=== PATIENT | male | born 1965 | race Caucasian/White ===

== ENCOUNTER 2016-09-04 15:15 | Outpatient (CLI) | payer MEDICAID ==
[2016-09-04 19:13] LABS: BASOPHILS # (AUTO) 0.1 10^3/uL (0.0-0.1); BASOPHILS % (AUTO) 1.4 %; EOSINOPHILS # (AUTO) 0.4 10^3/uL (0.0-0.7); EOSINOPHILS % (AUTO) 6.4 %; HCT - HEMATOCRIT 43.8 % (42.0-52.0); HGB - HEMOGLOBIN 14.7 g/dL (14.0-18.0); LYMPHOCYTES # (AUTO) 2.1 10^3/uL (1.5-3.5); LYMPHOCYTES % (AUTO) 37.1 %; MEAN CORPUSCULAR HEMOGLOBIN 29.8 pg (27.0-31.0); MEAN CORPUSCULAR HGB CONC 33.5 g/dL (32.0-36.0); MEAN CORPUSCULAR VOLUME 89.1 fL (80.0-94.0); MEAN PLATELET VOLUME 9.1 fL (7.4-11.4); MONOCYTES # (AUTO) 0.3 10^3/uL (0.0-1.0); MONOCYTES % (AUTO) 5.2 %; NEUTROPHILS # (AUTO) 2.8 10^3/uL (1.5-6.6); NEUTROPHILS % (AUTO) 49.9 %; RED BLOOD COUNT 4.92 10^6/uL (4.70-6.10); RED CELL DISTRIBUTION WIDTH 13.1 % (12.0-15.0); UNCORRECTED WHITE BLOOD COUNT 5.6 x10^3/uL; WHITE BLOOD COUNT 5.6 x10^3/uL (4.8-10.8)
[2016-09-04 19:22] LABS: HEMOGLOBIN A1C 0.7 g/dL
[2016-09-04 20:09] LABS: ALBUMIN/GLOBULIN RATIO 1.6 (1.0-2.2); BILIRUBIN,TOTAL 1.2 mg/dL (0.2-1.0); BUN - BLOOD UREA NITROGEN 10 mg/dL (6-20); CALCIUM 9.3 mg/dL (8.5-10.3); CARBON DIOXIDE - CO2 24 mmol/L (21-32); CHLORIDE 107 mmol/L (101-111); CHOL/HDL RATIO 3.2 (<5.0); CHOLESTEROL 138 mg/dL; CREATININE 0.7 mg/dL (0.6-1.2); GFR - MDRD 120 (>89); GLUCOSE 125 mg/dL (70-100); HDL CHOLESTEROL 43 mg/dL; LDL/HDL RATIO 1.7 (<3.6); POTASSIUM 3.7 mmol/L (3.5-5.0); SODIUM 140 mmol/L (135-145); TOTAL PROTEIN 7.2 g/dL (6.7-8.2); TRIGLYCERIDES 109 mg/dL; VLDL CHOLESTEROL 22 mg/dL
== END 2016-09-04 15:16 | disposition home or self-care (01) ==
LOC: LAB.WCP 15:15
PROVIDERS: ATTEND Physician Assistant Medical
DX: Z00.00 Encounter for general adult medical examination without abnormal findings (principal)
CPT/HCPCS: 36415; 80053; 80061; 83036; 84443; 85025

== ENCOUNTER 2017-12-09 08:00 | Outpatient (CLI) | payer MEDICAID ==
[2017-12-09 18:53] LABS: BASOPHILS # (AUTO) 0.1 10^3/uL (0.0-0.1); BASOPHILS % (AUTO) 1.3 %; EOSINOPHILS # (AUTO) 0.4 10^3/uL (0.0-0.7); EOSINOPHILS % (AUTO) 5.9 %; HGB - HEMOGLOBIN 14.6 g/dL (14.0-18.0); LYMPHOCYTES # (AUTO) 2.5 10^3/uL (1.5-3.5); LYMPHOCYTES % (AUTO) 40.5 %; MEAN CORPUSCULAR HEMOGLOBIN 30.2 pg (27.0-31.0); MEAN CORPUSCULAR HGB CONC 33.8 g/dL (32.0-36.0); MEAN CORPUSCULAR VOLUME 89.2 fL (80.0-94.0); MEAN PLATELET VOLUME 8.9 fL (7.4-11.4); MONOCYTES # (AUTO) 0.3 10^3/uL (0.0-1.0); MONOCYTES % (AUTO) 5.6 %; NEUTROPHILS # (AUTO) 2.8 10^3/uL (1.5-6.6); NEUTROPHILS % (AUTO) 46.7 %; PLT - PLATELET COUNT 208 10^3/uL (130-450); RED BLOOD COUNT 4.83 10^6/uL (4.70-6.10); RED CELL DISTRIBUTION WIDTH 12.8 % (12.0-15.0); WHITE BLOOD COUNT 6.1 x10^3/uL (4.8-10.8)
[2017-12-09 19:12] LABS: ALBUMIN 4.3 g/dL (3.2-5.5); ALBUMIN/GLOBULIN RATIO 1.4 (1.0-2.2); ALKALINE PHOSPHATASE 52 IU/L (42-121); ALT ALANINE AMINOTRANSFERASE 17 IU/L (10-60); AST ASPARTATE AMINOTRANSFERASE 20 IU/L (10-42); BILIRUBIN,TOTAL 0.9 mg/dL (0.2-1.0); BUN - BLOOD UREA NITROGEN 10 mg/dL (6-20); CALCIUM 9.1 mg/dL (8.5-10.3); CARBON DIOXIDE - CO2 23 mmol/L (21-32); CHLORIDE 107 mmol/L (101-111); CHOL/HDL RATIO 3.5 (<5.0); CHOLESTEROL 156 mg/dL; CREATININE 0.7 mg/dL (0.6-1.2); GFR - MDRD 119 (>89); GLUCOSE 119 mg/dL (70-100); HDL CHOLESTEROL 44 mg/dL; LDL CHOLESTEROL,CALCULATED 89 mg/dL; SODIUM 140 mmol/L (135-145); TOTAL PROTEIN 7.4 g/dL (6.7-8.2); VLDL CHOLESTEROL 23 mg/dL
[2017-12-09 19:55] LABS: HB2 TOTAL 14.9 g/dL; HEMOGLOBIN A1C 0.7 g/dL; HEMOGLOBIN A1C % 6.4 % (4.6-6.2)
== END 2017-12-09 08:01 | disposition home or self-care (01) ==
LOC: LAB.WCP 08:00
PROVIDERS: ATTEND Physician Assistant Medical
DX: Z00.00 Encounter for general adult medical examination without abnormal findings (principal); E11.9 Type 2 diabetes mellitus without complications; E78.2 Mixed hyperlipidemia
CPT/HCPCS: 36415; 80053; 80061; 81599; 82043; 83036; 83721; 84153; 84443; 85025

== ENCOUNTER 2018-05-05 06:12 | Day surgery (SDC) | payer MEDICAID ==
[~2018-05-05 06:12] MED LIST: MIDAZOLAM 2 MG/2 ML VIAL IVP ONE; fentaNYL 250 MCG/5 ML VIAL IVP ONE
[2018-05-05] MEDS ORDERED: LACTATED RINGERS 1,000 ML IV ONE ×2 (06:54→08:09)
[2018-05-05] MEDS ORDERED: LIDO GARGLE 30 ML BOTTLE ONE (07:17)
[2018-05-05] MEDS ORDERED: LIDO GARGLE 30 ML BOTTLE TOP ONE (07:30)
[2018-05-05 09:40] VITALS: BP 134/77
== END 2018-05-05 06:13 | disposition home or self-care (01) ==
LOC: SDS 06:12
PROVIDERS: ATTEND Internal Medicine Gastroenterology
PROC: 0DB38ZX Excision of Lower Esophagus, Via Natural or Artificial Opening Endoscopic, Diagnostic (ICD-10-PCS; 2018-05-05)
PROC: 0DB18ZX Excision of Upper Esophagus, Via Natural or Artificial Opening Endoscopic, Diagnostic (ICD-10-PCS; 2018-05-05)
PROC: 0D748ZZ Dilation of Esophagogastric Junction, Via Natural or Artificial Opening Endoscopic (ICD-10-PCS; 2018-05-05)
PROC: 0DBM8ZZ Excision of Descending Colon, Via Natural or Artificial Opening Endoscopic (ICD-10-PCS; principal; 2018-05-05 07:30)
PROC: 0DBN8ZZ Excision of Sigmoid Colon, Via Natural or Artificial Opening Endoscopic (ICD-10-PCS; 2018-05-05 07:30)
DX: Z12.11 Encounter for screening for malignant neoplasm of colon (principal); R13.10 Dysphagia, unspecified; D12.4 Benign neoplasm of descending colon; D12.5 Benign neoplasm of sigmoid colon; K22.2 Esophageal obstruction; E11.9 Type 2 diabetes mellitus without complications; Z79.84 Long term (current) use of oral hypoglycemic drugs; E66.9 Obesity, unspecified; Z68.31 Body mass index [BMI] 31.0-31.9, adult; E78.2 Mixed hyperlipidemia
CPT/HCPCS: 43239; 43249; 45380; 45385; A9270; J7120

== ENCOUNTER 2018-08-15 08:00 | Outpatient (CLI) | payer MEDICAID ==
[2018-08-15 19:20] LABS: ALBUMIN 4.3 g/dL (3.2-5.5); ALBUMIN/GLOBULIN RATIO 1.3 (1.0-2.2); ALKALINE PHOSPHATASE 44 IU/L (42-121); ALT ALANINE AMINOTRANSFERASE 17 IU/L (10-60); AST ASPARTATE AMINOTRANSFERASE 20 IU/L (10-42); BILIRUBIN,TOTAL 1.4 mg/dL (0.2-1.0); BUN - BLOOD UREA NITROGEN 13 mg/dL (6-20); CALCIUM 9.2 mg/dL (8.5-10.3); CARBON DIOXIDE - CO2 23 mmol/L (21-32); CHLORIDE 106 mmol/L (101-111); CHOL/HDL RATIO 3.9 (<5.0); CHOLESTEROL 168 mg/dL; CREATININE 0.7 mg/dL (0.6-1.2); GFR - MDRD 119 (>89); GLUCOSE 134 mg/dL (70-100); HDL CHOLESTEROL 43 mg/dL; LDL CHOLESTEROL,CALCULATED 100 mg/dL; LDL/HDL RATIO 2.3 (<3.6); SODIUM 140 mmol/L (135-145); TOTAL PROTEIN 7.5 g/dL (6.7-8.2); VLDL CHOLESTEROL 25 mg/dL
[2018-08-15 19:32] LABS: HB2 TOTAL 14.7 g/dL; HEMOGLOBIN A1C 0.68 g/dL; HEMOGLOBIN A1C % 6.4 % (4.6-6.2)
== END 2018-08-15 23:59 | disposition home or self-care (01) ==
LOC: LAB.WCP 08:00
PROVIDERS: ATTEND Physician Assistant Medical
DX: E11.9 Type 2 diabetes mellitus without complications (principal)
CPT/HCPCS: 36415; 80053; 80061; 83036; 83721

== ENCOUNTER 2019-02-13 08:00 | Outpatient (CLI) | payer MEDICAID ==
[2019-02-13 18:41] LABS: HEMOGLOBIN A1C 0.79 g/dL
[2019-02-13 18:51] LABS: ALBUMIN 4.4 g/dL (3.2-5.5); ALBUMIN/GLOBULIN RATIO 1.4 (1.0-2.2); ALKALINE PHOSPHATASE 42 IU/L (42-121); ALT ALANINE AMINOTRANSFERASE 19 IU/L (10-60); AST ASPARTATE AMINOTRANSFERASE 22 IU/L (10-42); BILIRUBIN,TOTAL 1.4 mg/dL (0.2-1.0); BUN - BLOOD UREA NITROGEN 11 mg/dL (6-20); CALCIUM 9.2 mg/dL (8.5-10.3); CARBON DIOXIDE - CO2 23 mmol/L (21-32); CHLORIDE 108 mmol/L (101-111); CHOL/HDL RATIO 3.4 (<5.0); CHOLESTEROL 150 mg/dL; CREATININE 0.6 mg/dL (0.6-1.2); GFR - MDRD 142 (>89); GLUCOSE 142 mg/dL (70-100); HDL CHOLESTEROL 44 mg/dL; LDL CHOLESTEROL,CALCULATED 85 mg/dL; LDL/HDL RATIO 1.9 (<3.6); SODIUM 139 mmol/L (135-145); TOTAL PROTEIN 7.5 g/dL (6.7-8.2); VLDL CHOLESTEROL 21 mg/dL
== END 2019-02-13 23:59 | disposition home or self-care (01) ==
LOC: LAB.WCP 08:00
PROVIDERS: ATTEND Physician Assistant Medical
DX: E11.9 Type 2 diabetes mellitus without complications (principal)
CPT/HCPCS: 36415; 80053; 80061; 83036; 83721

== ENCOUNTER 2019-09-04 15:08 | Outpatient (CLI) | payer MEDICAID ==
[2019-09-04 18:01] LABS: ALBUMIN 4.5 g/dL (3.2-5.5); ALBUMIN/GLOBULIN RATIO 1.7 (1.0-2.2); BILIRUBIN,TOTAL 1.7 mg/dL (0.2-1.0); CALCIUM 9.1 mg/dL (8.5-10.3); CREATININE 0.8 mg/dL (0.6-1.2); TOTAL PROTEIN 7.1 g/dL (6.7-8.2)
[2019-09-04 18:10] LABS: CREATININE,URINE 259.4 mg/dL; MICROALBUM/CREATININE RATIO,UR 3.5 ug/mg (<30.0); MICROALBUMIN,URINE 0.9 mg/dL (0-300.0)
[2019-09-04 18:14] LABS: HB2 TOTAL 14.6 g/dL; HEMOGLOBIN A1C 0.78 g/dL
== END 2019-09-04 23:59 | disposition home or self-care (01) ==
LOC: LAB.WCP 15:08
PROVIDERS: ATTEND Physician Assistant Medical
DX: E11.9 Type 2 diabetes mellitus without complications (principal)
CPT/HCPCS: 36415; 80053; 82043; 82570; 83036; 84443

== ENCOUNTER 2020-06-14 14:58 | Outpatient (CLI) | payer MEDICAID ==
[2020-06-14 18:37] LABS: ALBUMIN 4.5 g/dL (3.2-5.5); ALBUMIN/GLOBULIN RATIO 1.5 (1.0-2.2); ALKALINE PHOSPHATASE 46 IU/L (42-121); ALT ALANINE AMINOTRANSFERASE 23 IU/L (10-60); AST ASPARTATE AMINOTRANSFERASE 20 IU/L (10-42); BILIRUBIN,TOTAL 1.5 mg/dL (0.2-1.0); BUN - BLOOD UREA NITROGEN 12 mg/dL (6-20); CALCIUM 9.4 mg/dL (8.5-10.3); CARBON DIOXIDE - CO2 24 mmol/L (21-32); CHLORIDE 107 mmol/L (101-111); CHOLESTEROL 170 mg/dL; CREATININE 0.7 mg/dL (0.6-1.2); GFR - MDRD 118 (>89); GLUCOSE 166 mg/dL (70-100); HDL CHOLESTEROL 43 mg/dL; LDL CHOLESTEROL,CALCULATED 93 mg/dL; LDL/HDL RATIO 2.2 (<3.6); POTASSIUM 3.9 mmol/L (3.5-5.0); SODIUM 142 mmol/L (135-145); TOTAL PROTEIN 7.5 g/dL (6.7-8.2); TRIGLYCERIDES 170 mg/dL; VLDL CHOLESTEROL 34 mg/dL
[2020-06-14 20:23] LABS: ESTIMATED AVERAGE GLUCOSE 171 mg/dL (70-100); HEMOGLOBIN A1c% 7.6 % (4.27-6.07)
== END 2020-06-14 23:59 | disposition home or self-care (01) ==
LOC: LAB.WCP 14:58
PROVIDERS: ATTEND Physician Assistant Medical
DX: E11.9 Type 2 diabetes mellitus without complications (principal); Z12.5 Encounter for screening for malignant neoplasm of prostate
CPT/HCPCS: 36415; 80053; 80061; 83036; 83721; 84153

== ENCOUNTER 2022-12-03 17:55 | Emergency (ER) | payer MEDICAID ==
[2022-12-03 18:38] LABS: BASOPHILS # (AUTO) 0.1 10^3/uL (0.0-0.1); BASOPHILS % (AUTO) 1.1 %; EOSINOPHILS # (AUTO) 0.4 10^3/uL (0.0-0.7); EOSINOPHILS % (AUTO) 6.7 %; HCT - HEMATOCRIT 43.7 % (42.0-52.0); HGB - HEMOGLOBIN 14.6 g/dL (14.0-18.0); LYMPHOCYTES # (AUTO) 1.7 10^3/uL (1.5-3.5); LYMPHOCYTES % (AUTO) 26.3 %; MEAN CORPUSCULAR HEMOGLOBIN 29.1 pg (27.0-31.0); MEAN CORPUSCULAR HGB CONC 33.4 g/dL (32.0-36.0); MEAN CORPUSCULAR VOLUME 87.1 fL (80.0-94.0); MEAN PLATELET VOLUME 10.3 fL (7.4-11.4); MONOCYTES # (AUTO) 0.4 10^3/uL (0.0-1.0); MONOCYTES % (AUTO) 5.8 %; NEUTROPHILS # (AUTO) 3.8 10^3/uL (1.5-6.6); NEUTROPHILS % (AUTO) 59.9 %; PLT - PLATELET COUNT 192 10^3/uL (130-450); RED BLOOD COUNT 5.02 10^6/uL (4.70-6.10); WHITE BLOOD COUNT 6.4 x10^3/uL (4.8-10.8)
[2022-12-03 18:58] LABS: TROPONIN I HIGH SENSITIVITY 3.7 ng/L (2.3-19.7)
[2022-12-03 19:10] LABS: ALBUMIN 4.5 g/dL (3.2-5.5)
[2022-12-03 19:22] LABS: ALBUMIN/GLOBULIN RATIO 1.7 (1.0-2.2); CALCIUM 9.4 mg/dL (8.5-10.3); CREATININE 0.8 mg/dL (0.6-1.3); POTASSIUM 3.7 mmol/L (3.5-4.5); TOTAL PROTEIN 7.1 g/dL (6.4-8.9)
--- NOTE | 2022-12-03 19:39 | ED Physician Documentation ---
History of Present Illness - Stated complaint Stated Complaint: L SIDE NUMBNESS - Chief complaint Chief Complaint: Neuro - History obtained from History obtained from: Patient - History of Present Illness Timing: Today Pain level max: 0 Pain level now: 0 - Additonal information Additional information: 57-year-old male presents to the emergency department complaining of several months of decreased hearing in the left ear along with feelings of dizziness and Feeling off balance for several months. He states that over the past 5 to 6 days he has had numbness on the left side of the tongue and had tingling in the left arm and feels like he does not have fine motor control over the left hand. No headache. No trauma. No fevers. No chills. No recent illnesses. No medications. Nothing makes it better or worse. Has not had similar symptoms previously. No neck or back pain. He states he has seen his PCP but has not had any imaging performed. Review of Systems Constitutional: denies: Fever, Chills Throat: denies: Sore throat Cardiac: denies: Chest pain / pressure Respiratory: denies: Dyspnea, Cough GI: denies: Vomiting, Diarrhea Skin: denies: Rash Musculoskeletal: denies: Neck pain, Back pain Neurologic: denies: Headache PD PAST MEDICAL HISTORY - Past Medical History Cardiovascular: None, High cholesterol Respiratory: None Endocrine/Autoimmune: Type 2 diabetes GI: None : None HEENT: Chronic vision loss Psych: None Musculoskeletal: None Derm: None - Past Surgical History Past Surgical History: No Ortho: Other - Present Medications Home Medications: Ambulatory Orders Medication Instructions Recorded Confirmed Empagliflozin [Jardiance] 25 mg PO DAILY 12/03/22 12/03/22 Lisinopril [Zestril] 10 mg PO DAILY 12/03/22 12/03/22 Rosuvastatin Calcium [Crestor] 40 mg PO DAILY 12/03/22 12/03/22 - Allergies Allergies/Adverse Reactions: Allergies Allergy/AdvReac Type Severity Reaction Status Date / Time No Known Drug Allergies Allergy Verified 12/03/22 18:08 - Social History Does the pt smoke?: Yes Smoking Status: Current every day smoker Does the pt drink ETOH?: No Does the pt have substance abuse?: Yes PD ED PE NORMAL - Vitals Vital signs reviewed: Yes - General General: Alert and oriented X 3, No acute distress - HEENT HEENT: Atraumatic, PERRL, EOMI, Ears normal, Moist mucous membranes, Pharynx benign, Other (No nystagmus.) - Neck Neck: Supple, no meningeal sign, No bony TTP, No JVD, No bruit - Cardiac Cardiac: RRR, Strong equal pulses - Respiratory Respiratory: No respiratory distress, Clear bilaterally - Abdomen Abdomen: Soft, Non tender, Non distended - Back Back: No CVA TTP, No spinal TTP - Derm Derm: Warm and dry - Extremities Extremities: Normal ROM s pain - Neuro Neuro: Alert and oriented X 3, conveyor monitor 2-12 intact, No motor deficit, No sensory deficit, Normal speech, Other (Patient does have difficulty with [id number] with the left hand. Also has difficulty with the left hand with dysdiadochokinesis) Eye Opening: Spontaneous Motor: Obeys Commands Verbal: Oriented GCS Score: 15 - Psych Psych: Normal mood, Normal affect Results - Vitals Vitals: Vital Signs - 24 hr 12/03/22 12/03/22 18:02 22:00 Temperature 36.9 C 37 C Heart Rate 72 82 Respiratory 20 20 Rate Blood Pressure 182/101 H 125/86 H O2 Saturation 96 100 Oxygen O2 Source Room air - EKG (time done) 1817 EKG releavant findings:: EKG personally interpreted by author of this note. Relevant findings are: Rate: Rate (enter#) (65) Rhythm: NSR, Other (PVC - trigeminy) [place]: Normal Intervals: Normal [place] QRS: Normal Ischemia: Normal ST segments - Labs Labs: Laboratory Tests 12/03/22 12/03/22 18:33 18:33 WBC 6.4 RBC 5.02 Hgb 14.6 Hct 43.7 MCV 87.1 MCH 29.1 MCHC 33.4 RDW 12.0 Plt Count 192 MPV 10.3 Neut # (Auto) 3.8 Lymph # (Auto) 1.7 [place] # (Auto) 0.4 Eos # (Auto) 0.4 Baso # (Auto) 0.1 Absolute Nucleated RBC 0.00 Nucleated RBC % 0.0 Sodium 137 Potassium 3.7 Chloride 106 Carbon Dioxide 20 L Anion Gap 11.0 BUN 14 Creatinine 0.8 Estimated GFR (MDRD) 100 Glucose 193 H Calcium 9.4 Total Bilirubin 1.0 AST 20 ALT 21 Alkaline Phosphatase 56 Troponin I High Sens 3.7 Total Protein 7.1 Albumin 4.5 Globulin 2.6 Albumin/Globulin Ratio 1.7 Lipase 43 - Rads (name of study) CT angio head Relevant Findings:: Final report received, See rad report CT head Relevant Findings:: Final report received, See rad report PD Medical Decision Making - ED course Complexity details: reviewed results, re-evaluated patient, considered differential, d/w patient, d/w family ED course: 57-year-old male with paresthesia he left arm and numbness to the left tongue. Ongoing for 5 to 6 days. Also has had decreased hearing in the left ear for several months and feeling off balance for several months. No acute findings on angiogram of the head and neck. No acute findings on head CT. MRI is not available tonight. Patient does not want to stay in the emergency department tonight. There are no beds available for observation. He will return in the morning for MRI. Patient counseled regarding signs and symptoms for which I believe and urgent re-evaluation would be necessary. Patient with good understanding of and agreement to plan and is comfortable going home at this time This document was made in part using voice recognition software. While efforts are made to proofread this document, sound alike and grammatical errors may occur. Patient was given aspirin tonight. Departure - Departure Disposition: 01 Home, Self Care Clinical Impression: Numbness of tongue, Arm paresthesia, left Condition: Good Instructions: ED Paraesthesias Follow-Up: Cindy Kline PA-C [Primary Care Provider] - Comments: The cause of your symptoms is unclear tonight. The angiogram of your head and neck do not show any acute abnormalities. Your head CT does not show any acute abnormalities. Your blood work does not show any acute abnormalities. As we discussed it is important that you have an MRI urgently, we did discuss staying in the ER tonight so this could be done in the morning, but you have elected to go home and come back early in the morning for MRI. I would recommend checking back into the emergency department around 8 AM. Please return at any time should you worsen. Forms: PCP List Discharge Date/Time: 12/03/22 22:00
--- NOTE | 2022-12-03 21:09 | CT Report ---
PROCEDURE: HEAD WO INDICATIONS: L arm weak, L tongue numb x 5 days TECHNIQUE: Noncontrast 4.5 mm thick angled axial sections acquired from the foramen magnum to the vertex. For r adiation dose reduction, the following was used: automated exposure control, adjustment of mA and/or kV according to patient size. COMPARISON: None. FINDINGS: Image quality: Good CSF spaces: Basal cisterns are patent. Lateral ventricles are symmetric. Volume: Vascular calcifications. Periventricular white matter disease is commonly seen with chronic m icroangiopathy. Volume loss is present. These findings are mild. Brain: No intracranial hemorrhage. Peters-white differentiation is grossly maintained. Craniofacial structures: No displaced fracture. Sinuses are clear. Orbits are intact. IMPRESSION: No acute intracranial abnormality. Consider MRI if there is high concern for infarct. Reviewed by: Deangelo Eric MD on 12/03/2022 9:08 PM PDT Approved by: Deangelo Eric MD on 12/03/2022 9:08 PM PDT Station ID: [id number]
--- NOTE | 2022-12-03 21:16 | CT Report ---
PROCEDURE: CT Angio Head/Neck INDICATIONS: L sided tongue numb, arm weak x several days. TECHNIQUE: Axial CT images were obtained of the head and neck in the arteriographic phase. Multiplana r reformats were obtained. IV contrast was used. Contrast: IV contrast. COMPARISON: Same-day head CT FINDINGS: Image quality: Good Head angiography Anterior circulation: ICAs: Moderate cavernous calcifications. ACAs: normal and symmetric MCAs: normal and symmetric AComm: no aneurysm Posterior circulation: Dominance: Slightly left dominant Vertebral arteries: Mild calcifications Basilar artery: Moderate irregularity in the proximal segment with narrowing PComms: no aneurysm kindergarten teacher assistant: Moderate to severe intracranial irregularity. Neck angiography Aortic arch and subclavian arteries: Atherosclerotic calcifications without significant narrowing CCAs: no stenosis, occlusion, or aneurysm. ICA origins (by NASCET criteria): Mild calcifications without significant narrowing ICAs: no stenosis, occlusion or aneurysm. ECAs: origins are patent. Vertebral arteries: Mild calcification of the left origin. Soft tissues: no significant mass, aneurysm, or lymphadenopathy Tonsillar calcifications may be due to prior inflammation. No drainable fluid collection. Lung apices: no pneumothorax Bones: Degenerative changes, no acute or suspicious osseous finding. IMPRESSION: No large vessel occlusion. Intracranial areas of multifocal narrowing, particularly involving the pos terior circulation (basilar artery and kindergarten teacher assistant), likely intracranial atherosclerotic disease. Consider M RI to further evaluate for infarct. Other findings as above. Reviewed by: Deangelo Eric MD on 12/03/2022 9:15 PM PDT Approved by: Deangelo Eric MD on 12/03/2022 9:15 PM PDT Station ID: [id number]
[2022-12-03] MEDS ORDERED: ASPIRIN CHEW 81 MG TABLET PO STA (21:26)
[2022-12-03 22:02] VITALS: BP 125/86; O2SAT 100
[2022-12-04] MEDS ORDERED: iohexoL-300 100 ML VIAL IVP ONE (04:49)
== END 2022-12-03 22:00 | disposition home or self-care (01) ==
LOC: ED 17:55
DX: R20.2 Paresthesia of skin (principal); K13.29 Other disturbances of oral epithelium, including tongue; F17.200 Nicotine dependence, unspecified, uncomplicated
CPT/HCPCS: 36415; 70450; 70496; 70498; 80053; 83690; 84484; 85025; 93005; 99283; 99284; A9270; Q9967

== ENCOUNTER 2022-12-04 07:44 | Emergency (ER) | payer MEDICAID ==
[2022-12-04 08:35] VITALS: O2SAT 98
--- NOTE | 2022-12-04 11:46 | MRI Report ---
PROCEDURE: BRAIN WO INDICATIONS: left arm numbness, incoordinate; dizziness TECHNIQUE: Noncontrast axial diffusion, T1, and sagittal FLAIR sequences are submitted for interpretation. COMPARISON: None. FINDINGS: Image quality: Excellent. CSF Spaces: Basal cisterns are patent. No extra-axial fluid collections. Ventricles are normal in size and shape. Brain: No intracranial masses or hemorrhage. Peters/white matter interface is normal. Diffusion-weigh tana imaging demonstrates a 12 mm diameter focus of elevated signal intensity within the left cerebell ar peduncle, which demonstrates moderate FLAIR signal elevation. No chronic ischemic insults. Normal intravascular flow voids are present. Skull and face: Calvarium has normal marrow signal. Orbits appear normal. Sinuses: Sinuses and mastoids are clear. IMPRESSION: 1. Subacute left cerebellar peduncle infarct. Reviewed by: Milagros Harrington MD on 12/04/2022 11:45 AM PDT Approved by: Milagros Harrington MD on 12/04/2022 11:45 AM PDT Station ID: [id number]
[2022-12-04] MEDS ORDERED: CLOPIDOGREL 75 MG TABLET PO STA (12:53)
--- NOTE | 2022-12-04 12:58 | ED Physician Documentation ---
PD HPI FOCAL NEURO - Stated complaint Stated Complaint: LT SIDE NUMBNESS - Chief complaint Chief Complaint: Neuro - History obtained from History obtained from: Patient - History of Present Illness Timing - onset: How many weeks ago (1) Timing - duration: Weeks (about 1 week of feeling poor fine motor dexterity left hand, some limping with left leg. Dizziness and balance problems. Seen yesterday with CT, CT-A, labs done. No acute process. Told to return for MRI today and sooner if worse. No new symptoms; prior ones unchanged.) Timing - details: Abrupt onset, Still present, Waxing and waning Weakness: Hand, Foot, Left. No: Face Numbness: No: Face, Hand, Foot Associated symptoms: No: Headache, Nausea / vomiting, Head injury Baseline status: positive: A&OX3, ambulatory, indep Similar symptoms before: Has not had sx before Recently seen: Emergency Dept (seen yesterday and was to be OBS versus return for MRI and pt opted for d/c and return today.) Review of Systems Constitutional: denies: Fever, Chills Neurologic: denies: Headache, Head injury PD PAST MEDICAL HISTORY - Past Medical History Past Medical History: Yes Cardiovascular: None, High cholesterol Respiratory: None Endocrine/Autoimmune: Type 2 diabetes GI: None : None HEENT: Chronic vision loss Psych: None Musculoskeletal: None Derm: None - Past Surgical History Past Surgical History: No Ortho: Other - Present Medications Home Medications: Ambulatory Orders Medication Instructions Recorded Confirmed Empagliflozin [Jardiance] 25 mg PO DAILY 12/03/22 12/04/22 Lisinopril [Zestril] 10 mg PO DAILY 12/03/22 12/04/22 Rosuvastatin Calcium [Crestor] 40 mg PO DAILY 12/03/22 12/04/22 Aspirin [Aspirin EC] 81 mg PO DAILY 12/04/22 12/04/22 Clopidogrel [Plavix] 75 mg PO DAILY 30 Days #30 tablet 12/04/22 - Allergies Allergies/Adverse Reactions: Allergies Allergy/AdvReac Type Severity Reaction Status Date / Time No Known Drug Allergies Allergy Verified 12/04/22 08:30 - Social History Does the pt smoke?: Yes Smoking Status: Current every day smoker Does the pt drink ETOH?: No Does the pt have substance abuse?: Yes - Immunizations Immunizations are current?: No PD ED PE NORMAL - Vitals Vital signs reviewed: Yes - General General: Alert and oriented X 3, Well developed/nourished - Derm Derm: Normal color, Warm and dry - Neuro Neuro: Alert and oriented X 3, Normal speech. No: No motor deficit (gross motor good left arm. Dexterity of fine motor in fingers sluggish. See yesterdays ED note. ) Results - Vitals Vitals: Vital Signs - 24 hr 12/04/22 12/04/22 08:28 13:05 Temperature 36.9 C Heart Rate 64 60 Respiratory 16 16 Rate Blood Pressure 140/56 H 155/74 H O2 Saturation 98 98 Oxygen O2 Source Room air - Rads (name of study) brain RMi Relevant Findings:: Prelim report reviewed (subacute left peduncle cerebllar infarct.) PD Medical Decision Making - ED course Complexity details: reviewed results, considered differential (Brain MRI showing subactue cerebellar peduncle infarct. CTA yesteday did not show any LVO nor accessible stenoses. Risk reduction at this point: he is already on statin and ASA. To continue those and Add Plavix typically for 30 days. BP is controlled. F/U PCP for PT to help with sx improve. ), d/w patient Departure - Departure Disposition: 01 Home, Self Care Clinical Impression: New cerebellar infarct Condition: Stable Record reviewed to determine appropriate education?: Yes Instructions: ED Stroke Completed Follow-Up: Cindy Kline PA-C [Primary Care Provider] - Prescriptions: Clopidogrel [Plavix] 75 mg PO DAILY 30 Days #30 tablet Comments: Your MRI does show a subacute stroke/infarct in the cerebellar area. This would account for your symptoms. Your CT angiogram from yesterday did not show any intervenable areas of's stenosis/tightness, meaning areas that could be dilated or stented etc. and the main vessels. There was some irregularity of the small vessels noted on the angiogram. The focus on this would be to prevent further strokes and also the recovery of the symptoms from the current. Continue with your current rosuvastatin cholesterol medicine and aspirin daily. Guidelines would typically add another antiplatelet agent called clopido grel/Plavix daily for at least a month. Follow-up with your primary care next week, call for an appointment. They could initiate some formal physical therapy that may likely help with retraining your brain for coordination and gait. This has been shown to be helpful. Return if new symptoms develop or worsening overall. I sent your prescription to your preferred pharmacy. Forms: PCP List Discharge Date/Time: 12/04/22 13:07
[2022-12-04 13:14] VITALS: BP 155/74
== END 2022-12-04 13:07 | disposition home or self-care (01) ==
LOC: ED 07:44
DX: I63.9 Cerebral infarction, unspecified (principal); E78.00 Pure hypercholesterolemia, unspecified; E11.9 Type 2 diabetes mellitus without complications; F17.200 Nicotine dependence, unspecified, uncomplicated; Z79.899 Other long term (current) drug therapy; Z79.82 Long term (current) use of aspirin; Z79.02 Long term (current) use of antithrombotics/antiplatelets; Z79.84 Long term (current) use of oral hypoglycemic drugs
CPT/HCPCS: 70551; 99284; A9270